=== PATIENT | male | born 1995 | race Caucasian/White ===

== ENCOUNTER 2024-06-11 13:43 | Emergency (ER) | payer OTHER, SELFPAY ==
[2024-06-11 13:45] VITALS: BP 112/72
[2024-06-11 13:59] VITALS: BMI 23.5
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
[2024-06-11] MEDS: ROCEPHIN 500 MG IM (19:38)
[2024-06-11] MEDS: VIBRAMYCIN 100 MG PO (19:39)
[2024-06-11 19:47] VITALS: BP 109/73
[2024-06-11 21:26] LABS: HIV Combo Negative (Negative)
== END 2024-06-11 20:24 ==
LOC: EMR 13:43
PROVIDERS: Nurse Practitioner; EMERGENCY PHYSICIAN Emergency Medicine
DX: T76.21XA Adult sexual abuse, suspected, initial encounter (principal); X58.XXXA Exposure to other specified factors, initial encounter
CPT/HCPCS: 99285; 96372; 72110; 74022; 87389; 87491; 87591